=== PATIENT | male | born 1970 | race Hispanic/Latino ===

== ENCOUNTER → 2021-07-29 | Outpatient (CLI) | payer OTHER ==
[~2021-07-29] MED LIST: INSU100C6 SQ; INSU100I21 SQ; TYL3B PO
== END | disposition home or self-care (01) ==
LOC: OIH 10:10
PROVIDERS: ATTEND Family Medicine
DX: M47.815 Spondylosis without myelopathy or radiculopathy, thoracolumbar region (principal); R06.02 Shortness of breath
CPT/HCPCS: 71046

== ENCOUNTER → 2022-01-29 | Outpatient (CLI) | payer OTHER ==
[~2022-01-29] MED LIST changes: +LIDOCAINE HCL 4% LTA SOL 4 ML VIAL TP ONE
== END | disposition home or self-care (01) ==
LOC: WHH 10:18
PROVIDERS: ATTEND Family Medicine
DX: L89.899 Pressure ulcer of other site, unspecified stage (principal); E11.22 Type 2 diabetes mellitus with diabetic chronic kidney disease; I12.0 Hypertensive chronic kidney disease with stage 5 chronic kidney disease or end stage renal disease; N18.6 End stage renal disease; E78.5 Hyperlipidemia, unspecified; Z99.2 Dependence on renal dialysis; Z98.49 Cataract extraction status, unspecified eye; Z89.511 Acquired absence of right leg below knee; Z79.82 Long term (current) use of aspirin; Z79.899 Other long term (current) drug therapy
CPT/HCPCS: 11042; A4450; A6021; A6197

== ENCOUNTER → 2022-02-05 | Outpatient (CLI) | payer OTHER | END | disposition home or self-care (01) | LOC: WHH 09:47 | PROVIDERS: ATTEND Family Medicine | DX: L89.899 Pressure ulcer of other site, unspecified stage (principal); S81.001A Unspecified open wound, right knee, initial encounter; E11.22 Type 2 diabetes mellitus with diabetic chronic kidney disease; I12.0 Hypertensive chronic kidney disease with stage 5 chronic kidney disease or end stage renal disease; N18.6 End stage renal disease; E78.5 Hyperlipidemia, unspecified; Z99.2 Dependence on renal dialysis; Z98.49 Cataract extraction status, unspecified eye; Z89.511 Acquired absence of right leg below knee; Z79.82 Long term (current) use of aspirin; Z79.899 Other long term (current) drug therapy; X58.XXXA Exposure to other specified factors, initial encounter; Y93.89 Activity, other specified; Y92.89 Other specified places as the place of occurrence of the external cause; Y99.8 Other external cause status | CPT/HCPCS: 11042; A6021; A6196 ==

== ENCOUNTER → 2022-02-12 | Outpatient (CLI) | payer OTHER | END | disposition home or self-care (01) | LOC: WHH 09:57 | PROVIDERS: ATTEND Family Medicine | DX: E11.622 Type 2 diabetes mellitus with other skin ulcer (principal); L97.812 Non-pressure chronic ulcer of other part of right lower leg with fat layer exposed; S81.001D Unspecified open wound, right knee, subsequent encounter; E11.22 Type 2 diabetes mellitus with diabetic chronic kidney disease; I12.0 Hypertensive chronic kidney disease with stage 5 chronic kidney disease or end stage renal disease; N18.6 End stage renal disease; E78.5 Hyperlipidemia, unspecified; Z99.2 Dependence on renal dialysis; Z98.49 Cataract extraction status, unspecified eye; Z89.511 Acquired absence of right leg below knee; Z79.82 Long term (current) use of aspirin; Z79.899 Other long term (current) drug therapy; X58.XXXD Exposure to other specified factors, subsequent encounter | CPT/HCPCS: 11042; A6021; A6197 ==

== ENCOUNTER → 2022-02-26 | Outpatient (CLI) | payer OTHER ==
[~2022-02-26] MED LIST changes: -LIDOCAINE HCL 4% LTA SOL 4 ML VIAL TP ONE
== END | disposition home or self-care (01) ==
LOC: WHH 10:05
PROVIDERS: ATTEND Family Medicine
DX: E11.622 Type 2 diabetes mellitus with other skin ulcer (principal); L97.812 Non-pressure chronic ulcer of other part of right lower leg with fat layer exposed; S81.001D Unspecified open wound, right knee, subsequent encounter; E11.22 Type 2 diabetes mellitus with diabetic chronic kidney disease; I12.0 Hypertensive chronic kidney disease with stage 5 chronic kidney disease or end stage renal disease; N18.6 End stage renal disease; L84 Corns and callosities; E78.5 Hyperlipidemia, unspecified; Z99.2 Dependence on renal dialysis; Z98.49 Cataract extraction status, unspecified eye; Z89.511 Acquired absence of right leg below knee; Z79.82 Long term (current) use of aspirin; Z79.899 Other long term (current) drug therapy; X58.XXXD Exposure to other specified factors, subsequent encounter
CPT/HCPCS: 11042; A6021; A6197

== ENCOUNTER → 2022-03-05 | Outpatient (CLI) | payer OTHER, MEDICARE ==
[~2022-03-05] MED LIST changes: +LIDOCAINE HCL 4% LTA SOL 4 ML VIAL TP ONE
== END | disposition home or self-care (01) ==
LOC: WHH 08:50
PROVIDERS: ATTEND Family Medicine
DX: E11.622 Type 2 diabetes mellitus with other skin ulcer (principal); L97.812 Non-pressure chronic ulcer of other part of right lower leg with fat layer exposed; S81.001D Unspecified open wound, right knee, subsequent encounter; E11.22 Type 2 diabetes mellitus with diabetic chronic kidney disease; I12.0 Hypertensive chronic kidney disease with stage 5 chronic kidney disease or end stage renal disease; N18.6 End stage renal disease; L84 Corns and callosities; E78.5 Hyperlipidemia, unspecified; Z99.2 Dependence on renal dialysis; Z98.49 Cataract extraction status, unspecified eye; Z89.511 Acquired absence of right leg below knee; Z79.82 Long term (current) use of aspirin; Z79.899 Other long term (current) drug therapy; X58.XXXD Exposure to other specified factors, subsequent encounter
CPT/HCPCS: 11042; A6021; A6197

== ENCOUNTER → 2022-03-19 | Outpatient (CLI) | payer OTHER, MEDICARE | END | disposition home or self-care (01) | LOC: WHH 09:09 | PROVIDERS: ATTEND Family Medicine | DX: E11.622 Type 2 diabetes mellitus with other skin ulcer (principal); L97.812 Non-pressure chronic ulcer of other part of right lower leg with fat layer exposed; L97.311 Non-pressure chronic ulcer of right ankle limited to breakdown of skin; L84 Corns and callosities; S81.001D Unspecified open wound, right knee, subsequent encounter; E11.22 Type 2 diabetes mellitus with diabetic chronic kidney disease; I12.0 Hypertensive chronic kidney disease with stage 5 chronic kidney disease or end stage renal disease; N18.6 End stage renal disease; E78.5 Hyperlipidemia, unspecified; Z99.2 Dependence on renal dialysis; Z98.49 Cataract extraction status, unspecified eye; Z89.511 Acquired absence of right leg below knee; Z79.82 Long term (current) use of aspirin; Z79.899 Other long term (current) drug therapy; X58.XXXD Exposure to other specified factors, subsequent encounter | CPT/HCPCS: 11042; A6021; A6197 ==

== ENCOUNTER → 2022-04-02 | Outpatient (CLI) | payer OTHER, MEDICARE | END | disposition home or self-care (01) | LOC: WHH 08:53 | PROVIDERS: ATTEND Family Medicine | DX: E11.622 Type 2 diabetes mellitus with other skin ulcer (principal); L97.812 Non-pressure chronic ulcer of other part of right lower leg with fat layer exposed; L97.311 Non-pressure chronic ulcer of right ankle limited to breakdown of skin; L84 Corns and callosities; S81.001D Unspecified open wound, right knee, subsequent encounter; E11.22 Type 2 diabetes mellitus with diabetic chronic kidney disease; I12.0 Hypertensive chronic kidney disease with stage 5 chronic kidney disease or end stage renal disease; N18.6 End stage renal disease; E78.5 Hyperlipidemia, unspecified; Z99.2 Dependence on renal dialysis; Z98.49 Cataract extraction status, unspecified eye; Z89.511 Acquired absence of right leg below knee; Z79.82 Long term (current) use of aspirin; Z79.899 Other long term (current) drug therapy; X58.XXXD Exposure to other specified factors, subsequent encounter | CPT/HCPCS: 11042; A6021; A6197 ==

== ENCOUNTER → 2022-04-09 | Outpatient (CLI) | payer OTHER, MEDICARE | END | disposition home or self-care (01) | LOC: WHH 09:10 | PROVIDERS: ATTEND Family Medicine | DX: E11.622 Type 2 diabetes mellitus with other skin ulcer (principal); L97.812 Non-pressure chronic ulcer of other part of right lower leg with fat layer exposed; L97.311 Non-pressure chronic ulcer of right ankle limited to breakdown of skin; L84 Corns and callosities; S81.001D Unspecified open wound, right knee, subsequent encounter; E11.22 Type 2 diabetes mellitus with diabetic chronic kidney disease; I12.0 Hypertensive chronic kidney disease with stage 5 chronic kidney disease or end stage renal disease; N18.6 End stage renal disease; E78.5 Hyperlipidemia, unspecified; Z99.2 Dependence on renal dialysis; Z98.49 Cataract extraction status, unspecified eye; Z89.511 Acquired absence of right leg below knee; Z79.82 Long term (current) use of aspirin; Z79.899 Other long term (current) drug therapy; X58.XXXD Exposure to other specified factors, subsequent encounter | CPT/HCPCS: 11042; A6021; A6197 ==

== ENCOUNTER → 2022-04-16 | Outpatient (CLI) | payer OTHER, MEDICARE | END | disposition home or self-care (01) | LOC: WHH 08:38 | PROVIDERS: ATTEND Family Medicine | DX: T81.89XA Other complications of procedures, not elsewhere classified, initial encounter (principal); E11.622 Type 2 diabetes mellitus with other skin ulcer; L97.812 Non-pressure chronic ulcer of other part of right lower leg with fat layer exposed; L97.311 Non-pressure chronic ulcer of right ankle limited to breakdown of skin; L84 Corns and callosities; S81.001D Unspecified open wound, right knee, subsequent encounter; E11.22 Type 2 diabetes mellitus with diabetic chronic kidney disease; I12.0 Hypertensive chronic kidney disease with stage 5 chronic kidney disease or end stage renal disease; N18.6 End stage renal disease; E78.5 Hyperlipidemia, unspecified; Z99.2 Dependence on renal dialysis; Z98.49 Cataract extraction status, unspecified eye; Z89.511 Acquired absence of right leg below knee; Z79.82 Long term (current) use of aspirin; Z79.899 Other long term (current) drug therapy; X58.XXXD Exposure to other specified factors, subsequent encounter | CPT/HCPCS: 87070; 87077; 87186; 10180; A6021; A6197; A4450; 10060; 10061 ==

== ENCOUNTER → 2022-04-23 | Outpatient (CLI) | payer OTHER, MEDICARE | END | disposition home or self-care (01) | LOC: WHH 08:30 | PROVIDERS: ATTEND Family Medicine | DX: T81.89XD Other complications of procedures, not elsewhere classified, subsequent encounter (principal); E11.622 Type 2 diabetes mellitus with other skin ulcer; L97.811 Non-pressure chronic ulcer of other part of right lower leg limited to breakdown of skin; S81.001D Unspecified open wound, right knee, subsequent encounter; E11.22 Type 2 diabetes mellitus with diabetic chronic kidney disease; I12.0 Hypertensive chronic kidney disease with stage 5 chronic kidney disease or end stage renal disease; N18.6 End stage renal disease; E78.5 Hyperlipidemia, unspecified; M71.061 Abscess of bursa, right knee; Z89.511 Acquired absence of right leg below knee; Z99.2 Dependence on renal dialysis; Z98.49 Cataract extraction status, unspecified eye; Z79.82 Long term (current) use of aspirin; Z79.899 Other long term (current) drug therapy; X58.XXXD Exposure to other specified factors, subsequent encounter; Y83.8 Other surgical procedures as the cause of abnormal reaction of the patient, or of later complication, without mention of misadventure at the time of the procedure | CPT/HCPCS: G0463; A6021; A6197 ==

== ENCOUNTER → 2022-04-30 | Outpatient (CLI) | payer OTHER, MEDICARE | END | disposition home or self-care (01) | LOC: WHH 08:34 | PROVIDERS: ATTEND Family Medicine | DX: T81.89XD Other complications of procedures, not elsewhere classified, subsequent encounter (principal); E11.622 Type 2 diabetes mellitus with other skin ulcer; L97.812 Non-pressure chronic ulcer of other part of right lower leg with fat layer exposed; S81.001D Unspecified open wound, right knee, subsequent encounter; E11.22 Type 2 diabetes mellitus with diabetic chronic kidney disease; I12.0 Hypertensive chronic kidney disease with stage 5 chronic kidney disease or end stage renal disease; N18.6 End stage renal disease; E78.5 Hyperlipidemia, unspecified; M71.061 Abscess of bursa, right knee; Z89.511 Acquired absence of right leg below knee; Z99.2 Dependence on renal dialysis; Z98.49 Cataract extraction status, unspecified eye; Z79.82 Long term (current) use of aspirin; Z79.899 Other long term (current) drug therapy; X58.XXXD Exposure to other specified factors, subsequent encounter; Y83.8 Other surgical procedures as the cause of abnormal reaction of the patient, or of later complication, without mention of misadventure at the time of the procedure | CPT/HCPCS: 10140; 11042; A6021; A6197 ==

== ENCOUNTER → 2022-05-07 | Outpatient (CLI) | payer OTHER, MEDICARE ==
[~2022-05-07] MED LIST changes: -LIDOCAINE HCL 4% LTA SOL 4 ML VIAL TP ONE
== END | disposition home or self-care (01) ==
LOC: WHH 08:14
PROVIDERS: ATTEND Family Medicine
DX: T81.89XD Other complications of procedures, not elsewhere classified, subsequent encounter (principal); E11.622 Type 2 diabetes mellitus with other skin ulcer; L97.812 Non-pressure chronic ulcer of other part of right lower leg with fat layer exposed; S81.001D Unspecified open wound, right knee, subsequent encounter; E11.22 Type 2 diabetes mellitus with diabetic chronic kidney disease; I12.0 Hypertensive chronic kidney disease with stage 5 chronic kidney disease or end stage renal disease; N18.6 End stage renal disease; E78.5 Hyperlipidemia, unspecified; M71.061 Abscess of bursa, right knee; Z89.511 Acquired absence of right leg below knee; Z99.2 Dependence on renal dialysis; Z98.49 Cataract extraction status, unspecified eye; Z79.82 Long term (current) use of aspirin; Z79.899 Other long term (current) drug therapy; X58.XXXD Exposure to other specified factors, subsequent encounter; Y83.8 Other surgical procedures as the cause of abnormal reaction of the patient, or of later complication, without mention of misadventure at the time of the procedure
CPT/HCPCS: 11042; A6021; A6197

== ENCOUNTER → 2022-05-14 | Outpatient (CLI) | payer OTHER, MEDICARE ==
[~2022-05-14] MED LIST changes: +LIDOCAINE HCL 4% LTA SOL 4 ML VIAL TP ONE
== END | disposition home or self-care (01) ==
LOC: WHH 08:18
PROVIDERS: ATTEND Family Medicine
DX: T81.89XD Other complications of procedures, not elsewhere classified, subsequent encounter (principal); E11.622 Type 2 diabetes mellitus with other skin ulcer; L97.812 Non-pressure chronic ulcer of other part of right lower leg with fat layer exposed; S81.001D Unspecified open wound, right knee, subsequent encounter; E11.22 Type 2 diabetes mellitus with diabetic chronic kidney disease; I12.0 Hypertensive chronic kidney disease with stage 5 chronic kidney disease or end stage renal disease; N18.6 End stage renal disease; E78.5 Hyperlipidemia, unspecified; M71.061 Abscess of bursa, right knee; Z89.511 Acquired absence of right leg below knee; Z99.2 Dependence on renal dialysis; Z98.49 Cataract extraction status, unspecified eye; Z79.82 Long term (current) use of aspirin; Z79.899 Other long term (current) drug therapy; X58.XXXD Exposure to other specified factors, subsequent encounter; Y83.8 Other surgical procedures as the cause of abnormal reaction of the patient, or of later complication, without mention of misadventure at the time of the procedure
CPT/HCPCS: 11042; A6021; A6197

== ENCOUNTER → 2022-05-21 | Outpatient (CLI) | payer OTHER, MEDICARE | END | disposition home or self-care (01) | LOC: WHH 08:32 | PROVIDERS: ATTEND Family Medicine | DX: T81.89XD Other complications of procedures, not elsewhere classified, subsequent encounter (principal); E11.622 Type 2 diabetes mellitus with other skin ulcer; L97.812 Non-pressure chronic ulcer of other part of right lower leg with fat layer exposed; S81.001D Unspecified open wound, right knee, subsequent encounter; E11.22 Type 2 diabetes mellitus with diabetic chronic kidney disease; I12.0 Hypertensive chronic kidney disease with stage 5 chronic kidney disease or end stage renal disease; N18.6 End stage renal disease; E78.5 Hyperlipidemia, unspecified; M71.061 Abscess of bursa, right knee; Z89.511 Acquired absence of right leg below knee; Z99.2 Dependence on renal dialysis; Z98.49 Cataract extraction status, unspecified eye; Z79.82 Long term (current) use of aspirin; Z79.899 Other long term (current) drug therapy; X58.XXXD Exposure to other specified factors, subsequent encounter; Y83.8 Other surgical procedures as the cause of abnormal reaction of the patient, or of later complication, without mention of misadventure at the time of the procedure | CPT/HCPCS: G0463; A4450 ==

== ENCOUNTER → 2022-05-28 | Outpatient (CLI) | payer OTHER, MEDICARE ==
[~2022-05-28] MED LIST changes: -LIDOCAINE HCL 4% LTA SOL 4 ML VIAL TP ONE
== END | disposition home or self-care (01) ==
LOC: WHH 08:43
PROVIDERS: ATTEND Family Medicine
DX: E11.622 Type 2 diabetes mellitus with other skin ulcer (principal); L97.811 Non-pressure chronic ulcer of other part of right lower leg limited to breakdown of skin; S81.001D Unspecified open wound, right knee, subsequent encounter; E11.22 Type 2 diabetes mellitus with diabetic chronic kidney disease; I12.0 Hypertensive chronic kidney disease with stage 5 chronic kidney disease or end stage renal disease; N18.6 End stage renal disease; E78.5 Hyperlipidemia, unspecified; Z89.511 Acquired absence of right leg below knee; Z99.2 Dependence on renal dialysis; Z98.49 Cataract extraction status, unspecified eye; Z79.82 Long term (current) use of aspirin; Z79.899 Other long term (current) drug therapy; X58.XXXD Exposure to other specified factors, subsequent encounter
CPT/HCPCS: G0463

== ENCOUNTER 2022-08-18 15:39 | Inpatient (IN) | payer OTHER, MEDICARE ==
[~2022-08-18] VITALS: Ht 180.3 cm; Wt 69.1 kg
[2022-08-18 16:20] LABS: BASOPHILS % (AUTO) 0.4 % (0.0-5.0); EOSINOPHILS % (AUTO) 0.6 % (0.0-8.0); HEMATOCRIT 29.5 % (42-54); LYMPHOCYTES % (AUTO) 7.4 % (21.0-51.0); MEAN CORPUSCULAR HEMOGLOBIN 28.6 pg (27.0-33.0); MEAN CORPUSCULAR HGB CONC 33.2 g/dL (32.0-36.0); MONOCYTES % (AUTO) 9.2 % (3.0-13.0); NEUTROPHILS % (AUTO) 81.5 % (40.0-77.0); PLATELET COUNT (AUTO) 232 K/uL (130-400); RED BLOOD CELL COUNT(AUTO) 3.43 MIL/uL (4.50-6.20); RED CELL DISTRIBUTION WIDTH 13.8 % (11.0-15.5)
[2022-08-18 16:33] LABS: ALBUMIN 2.8 g/dL (3.5-5.0); CREATININE 8.8 mg/dL (0.5-1.5); POTASSIUM 3.4 mmol/L (3.5-5.1); TOTAL PROTEIN, SERUM 8.5 g/dL (6.0-8.3)
[2022-08-18] MEDS ORDERED: 0.9% NACL 500ML IV.SOLN 500 ML IV ONE (19:00)
[2022-08-19] VITALS (20 sets, daily range): BP systolic 99–137; BP diastolic 57–83
[2022-08-19] MEDS ORDERED: 0.9%NACL 1000ML 500 ML IV ONE (02:30)
[2022-08-19] MEDS ORDERED: MIDODRINE HCL 5 MG TABLET PO SCH ×2 (03:00→09:00)
[2022-08-19] MEDS ORDERED: ONDANSETRON 4MG INJ IV PRN (03:00)
[2022-08-19] MEDS ORDERED: ACETAMINOPHEN 325 MG TAB PO PRN (03:00)
[2022-08-19] MEDS ORDERED: LACTULOSE 20 GM/30 ML UDCUP PO PRN (03:00)
[2022-08-19] MEDS ORDERED: KCL 20 MEQ ERTAB PO ONE (03:30)
[2022-08-19] MEDS ORDERED: CEFTRIAXONE 1G VIAL IVP SCH (03:30)
[2022-08-19] MEDS: HEPARIN 5,000 UNIT VIAL SQ SCH ×2 (03:30→18:31)
[2022-08-19] MEDS ORDERED: ATOR40TA71 PO (05:19)
[2022-08-19] MEDS ORDERED: SUCR500T PO (05:19)
[2022-08-19] MEDS ORDERED: CHOL500051 PO (05:19)
[2022-08-19] MEDS ORDERED: FOLI0.8T22 PO (05:19)
[2022-08-19 06:38] LABS: INR 1.4 (0.85-1.15)
[2022-08-19 06:39] LABS: PARTIAL THROMBOPLASTIN TIME 32.6 SEC (26.3-35.5)
[2022-08-19] MEDS: INSULIN HUMULIN R 100 UNIT/ML 3ML SQ SCH ×4 (06:48→21:00)
[2022-08-19 07:02] LABS: THYROID STIMULATING HORMONE 2.34 uIU/mL (0.36-3.74)
[2022-08-19] MEDS: FAMOTIDINE 20MG TAB PO SCH ×2 (08:41→20:57)
[2022-08-19] MEDS ORDERED: EPOETIN ALFA-EPBX (NON-ESRD) 10,000 UNIT/ML VIAL SQ SCH (09:30)
[2022-08-19] MEDS ORDERED: VANCOMYCIN PROTOCOL PER PHARMACY IV SCH (09:30)
[2022-08-19 09:50] LABS: BASOPHILS % (AUTO) 0.5 % (0.0-5.0); EOSINOPHILS % (AUTO) 0.4 % (0.0-8.0); LYMPHOCYTES % (AUTO) 11.5 % (21.0-51.0); MEAN CORPUSCULAR HEMOGLOBIN 28.7 pg (27.0-33.0); MEAN CORPUSCULAR HGB CONC 32.5 g/dL (32.0-36.0); MEAN CORPUSCULAR VOLUME 88.3 fL (79-99); MONOCYTES % (AUTO) 8.6 % (3.0-13.0); NEUTROPHILS % (AUTO) 77.9 % (40.0-77.0); PLATELET COUNT (AUTO) 244 K/uL (130-400); RED BLOOD CELL COUNT(AUTO) 3.17 MIL/uL (4.50-6.20)
[2022-08-19 10:00] LABS: INR 1.4 (0.85-1.15)
[2022-08-19] MEDS ORDERED: VANCOMYCIN 1.25 GM/250 ML BAG 250 ML IV SCH (10:00)
[2022-08-19 10:02] LABS: PARTIAL THROMBOPLASTIN TIME 32.2 SEC (26.3-35.5)
[2022-08-19 10:12] LABS: ALBUMIN 2.6 g/dL (3.5-5.0); MAGNESIUM 2.3 mg/dL (1.80-2.40); POTASSIUM 3.5 mmol/L (3.5-5.1); THYROID STIMULATING HORMONE 2.86 uIU/mL (0.36-3.74); TOTAL PROTEIN, SERUM 8.1 g/dL (6.0-8.3)
[2022-08-19 10:25] LABS: CREATININE 10.4 mg/dL (0.5-1.5)
[2022-08-19 10:28] LABS: CRP QUANTITATIVE 300.3 mg/L (0.00-9.0)
[2022-08-19] MEDS: Vitamin B Complex/Vit C/Folic Acid PO SCH (10:57)
[2022-08-19] MEDS: CEFTRIAXONE 1G VIAL IVPB SCH (10:57)
[2022-08-19] MEDS ORDERED: LOPERAMIDE 1 MG/7.5 ML UDCUP PO PRN (11:30)
[2022-08-19] MEDS: ASPIRIN 81 MG EC TAB PO SCH (11:57)
[2022-08-19] MEDS: VELPHORO 500 MG PO SCH ×2 (11:58→16:30)
[2022-08-19] MEDS: MIDODRINE HCL 5 MG TABLET PO SCH ×2 (15:17→20:57)
[2022-08-19] MEDS: VANCOMYCIN 1.25 GM/250 ML BAG 250 ML IV SCH (18:29)
[2022-08-19] MEDS: ATORVASTATIN 40 MG TABLET PO SCH (20:57)
[2022-08-20] VITALS (7 sets, daily range): BP systolic 112–148; BP diastolic 60–81
[2022-08-20] MEDS: ACETAMINOPHEN 325 MG TAB PO PRN (03:55)
[2022-08-20] MEDS ORDERED: CALCIUM CARB 500MG CHEW TAB PO SCH (04:00)
[2022-08-20] MEDS: HEPARIN 5,000 UNIT VIAL SQ SCH ×2 (04:19→15:00)
[2022-08-20 04:56] LABS: HEPATITIS A IGM ANTIBODY Non-Reactive (Nonreactive)
[2022-08-20 04:57] LABS: HEPATITIS B CORE IGM ANTIBODY Non-Reactive (Negative); HEPATITIS B SURFACE ANTIGEN Non-Reactive (Nonreactive); HEPATITIS C ANTIBODY Non-Reactive (Nonreactive)
[2022-08-20] MEDS: INSULIN HUMULIN R 100 UNIT/ML 3ML SQ SCH ×4 (05:34→20:41)
[2022-08-20 05:38] LABS: BASOPHILS % (AUTO) 0.6 % (0.0-5.0); EOSINOPHILS % (AUTO) 0.5 % (0.0-8.0); HEMATOCRIT 30.4 % (42-54); MEAN CORPUSCULAR HEMOGLOBIN 28.9 pg (27.0-33.0); MEAN CORPUSCULAR HGB CONC 32.9 g/dL (32.0-36.0); MEAN CORPUSCULAR VOLUME 87.9 fL (79-99); MONOCYTES % (AUTO) 7.7 % (3.0-13.0); PLATELET COUNT (AUTO) 338 K/uL (130-400); RED BLOOD CELL COUNT(AUTO) 3.46 MIL/uL (4.50-6.20); RED CELL DISTRIBUTION WIDTH 14.1 % (11.0-15.5); WHITE BLOOD COUNT (AUTO) 17.2 K/uL (4.8-10.8)
[2022-08-20 05:58] LABS: ALBUMIN 2.5 g/dL (3.5-5.0); CREATININE 7.8 mg/dL (0.5-1.5); MAGNESIUM 1.9 mg/dL (1.80-2.40); POTASSIUM 3.7 mmol/L (3.5-5.1); TOTAL PROTEIN, SERUM 7.9 g/dL (6.0-8.3)
[2022-08-20 06:38] LABS: CRP QUANTITATIVE 311.9 mg/L (0.00-9.0)
[2022-08-20] MEDS: CEFTRIAXONE 1G VIAL IVPB SCH (09:19)
[2022-08-20] MEDS: Vitamin B Complex/Vit C/Folic Acid PO SCH (09:20)
[2022-08-20] MEDS: MIDODRINE HCL 5 MG TABLET PO SCH ×3 (09:20→20:49)
[2022-08-20] MEDS: FAMOTIDINE 20MG TAB PO SCH ×2 (09:20→20:49)
[2022-08-20] MEDS: **HM** VIT D3 125MCG PO SCH (09:26)
[2022-08-20] MEDS: VELPHORO 500 MG PO SCH ×3 (09:26→17:00)
[2022-08-20] MEDS: ASPIRIN 81 MG EC TAB PO SCH (12:19)
[2022-08-20] MEDS: VANCOMYCIN 1.25 GM/250 ML BAG 250 ML IV SCH (15:01)
[2022-08-20 15:46] LABS: % IRON SATURATION 14.4 % (30-44)
[2022-08-20] MEDS: ZOSYN 3.375GM +NS 50ML IV SCH (20:49)
[2022-08-20] MEDS: ATORVASTATIN 40 MG TABLET PO SCH (20:49)
[2022-08-21] VITALS (21 sets, daily range): BP systolic 110–148; BP diastolic 52–79
[2022-08-21] MEDS: HEPARIN 5,000 UNIT VIAL SQ SCH ×2 (04:20→15:00)
[2022-08-21] MEDS: INSULIN HUMULIN R 100 UNIT/ML 3ML SQ SCH ×4 (05:58→21:00)
[2022-08-21 06:55] LABS: BASOPHILS % (AUTO) 0.5 % (0.0-5.0); EOSINOPHILS % (AUTO) 1.7 % (0.0-8.0); HEMATOCRIT 31.7 % (42-54); LYMPHOCYTES % (AUTO) 8.8 % (21.0-51.0); MEAN CORPUSCULAR HEMOGLOBIN 28.2 pg (27.0-33.0); MEAN CORPUSCULAR HGB CONC 31.9 g/dL (32.0-36.0); MEAN CORPUSCULAR VOLUME 88.5 fL (79-99); MONOCYTES % (AUTO) 7.8 % (3.0-13.0); NEUTROPHILS % (AUTO) 79.2 % (40.0-77.0); PLATELET COUNT (AUTO) 398 K/uL (130-400); RED BLOOD CELL COUNT(AUTO) 3.58 MIL/uL (4.50-6.20); RED CELL DISTRIBUTION WIDTH 14.2 % (11.0-15.5); WHITE BLOOD COUNT (AUTO) 20.5 K/uL (4.8-10.8)
[2022-08-21 07:10] LABS: ALBUMIN 2.4 g/dL (3.5-5.0); BILIRUBIN,DIRECT 0.2 mg/dL (0.0-0.3); MAGNESIUM 2.2 mg/dL (1.80-2.40); POTASSIUM 3.7 mmol/L (3.5-5.1); TOTAL PROTEIN, SERUM 7.9 g/dL (6.0-8.3)
[2022-08-21 07:19] LABS: CREATININE 10.3 mg/dL (0.5-1.5)
[2022-08-21] MEDS: MIDODRINE HCL 5 MG TABLET PO SCH ×3 (08:43→19:54)
[2022-08-21] MEDS: Vitamin B Complex/Vit C/Folic Acid PO SCH (08:43)
[2022-08-21] MEDS: ZOSYN 3.375GM +NS 50ML IV SCH ×2 (08:43→22:00)
[2022-08-21] MEDS: FAMOTIDINE 20MG TAB PO SCH ×2 (08:43→19:54)
[2022-08-21] MEDS: **HM** VIT D3 125MCG PO SCH (09:00)
[2022-08-21] MEDS: ASPIRIN 81 MG EC TAB PO SCH (14:32)
[2022-08-21] MEDS: VANCOMYCIN 1.25 GM/250 ML BAG 250 ML IV SCH (15:00)
[2022-08-21] MEDS: ATORVASTATIN 40 MG TABLET PO SCH (19:54)
[2022-08-22] VITALS (25 sets, daily range): BP systolic 105–134; BP diastolic 64–80
[2022-08-22] MEDS: HEPARIN 5,000 UNIT VIAL SQ SCH ×2 (04:32→15:30)
[2022-08-22 04:39] LABS: BASOPHILS % (AUTO) 0.5 % (0.0-5.0); EOSINOPHILS % (AUTO) 1.6 % (0.0-8.0); LYMPHOCYTES % (AUTO) 8.5 % (21.0-51.0); MEAN CORPUSCULAR HEMOGLOBIN 28.6 pg (27.0-33.0); MEAN CORPUSCULAR HGB CONC 31.8 g/dL (32.0-36.0); MEAN CORPUSCULAR VOLUME 90.2 fL (79-99); MONOCYTES % (AUTO) 8.7 % (3.0-13.0); NEUTROPHILS % (AUTO) 78.5 % (40.0-77.0); PLATELET COUNT (AUTO) 428 K/uL (130-400); RED BLOOD CELL COUNT(AUTO) 3.77 MIL/uL (4.50-6.20); RED CELL DISTRIBUTION WIDTH 14.1 % (11.0-15.5); WHITE BLOOD COUNT (AUTO) 17.6 K/uL (4.8-10.8)
[2022-08-22] MEDS ORDERED: LIDOCAINE HCL 1% 20 ML VIAL ONE (04:42)
[2022-08-22] MEDS ORDERED: BUPIVACAINE/PF 0.5% 10ML VIAL ONE (04:42)
[2022-08-22 04:55] LABS: ALBUMIN 2.4 g/dL (3.5-5.0); CREATININE 7.8 mg/dL (0.5-1.5); POTASSIUM 3.4 mmol/L (3.5-5.1); TOTAL PROTEIN, SERUM 8.4 g/dL (6.0-8.3)
[2022-08-22 05:05] LABS: CRP QUANTITATIVE 236.6 mg/L (0.00-9.0)
[2022-08-22] MEDS ORDERED: PROPOFOL 1000 MG/100 ML 100 ML IV ONE (05:45)
[2022-08-22] MEDS ORDERED: KETAMINE HCL 100 MG/ML 5ML VIAL IJ ONE (05:46)
[2022-08-22 05:55] LABS: ERYTHROCYTE SEDIMENTATION RATE 116 MM/HR (0-15)
[2022-08-22] MEDS: INSULIN HUMULIN R 100 UNIT/ML 3ML SQ SCH ×4 (06:33→21:00)
[2022-08-22] MEDS ORDERED: MIDAZOLAM HCL 1 MG/ML 2ML VIAL ONE (07:43)
[2022-08-22] MEDS: **HM** VIT D3 125MCG PO SCH (09:00)
[2022-08-22] MEDS: CLOPIDOGREL 75MG TAB PO SCH ×3 (09:00→11:32)
[2022-08-22] MEDS: MIDODRINE HCL 5 MG TABLET PO SCH ×3 (09:53→21:11)
[2022-08-22] MEDS: FAMOTIDINE 20MG TAB PO SCH ×2 (09:53→21:11)
[2022-08-22] MEDS: Vitamin B Complex/Vit C/Folic Acid PO SCH (09:53)
[2022-08-22] MEDS: ZOSYN 3.375GM +NS 50ML IV SCH ×2 (09:53→21:11)
[2022-08-22] MEDS: ASPIRIN 81 MG EC TAB PO SCH (11:31)
[2022-08-22] MEDS ORDERED: GABA-529 PO (12:12)
[2022-08-22] MEDS: ATORVASTATIN 40 MG TABLET PO SCH (21:10)
[2022-08-23] VITALS (21 sets, daily range): BP systolic 97–147; BP diastolic 50–77
[2022-08-23] MEDS: HEPARIN 5,000 UNIT VIAL SQ SCH ×3 (04:02→18:26)
[2022-08-23 04:32] LABS: MEAN CORPUSCULAR HEMOGLOBIN 28.4 pg (27.0-33.0); MEAN CORPUSCULAR HGB CONC 31.9 g/dL (32.0-36.0); MEAN CORPUSCULAR VOLUME 89.1 fL (79-99); PLATELET COUNT (AUTO) 370 K/uL (130-400); RED BLOOD CELL COUNT(AUTO) 3.48 MIL/uL (4.50-6.20); RED CELL DISTRIBUTION WIDTH 14.1 % (11.0-15.5); WHITE BLOOD COUNT (AUTO) 17.9 K/uL (4.8-10.8)
[2022-08-23 04:56] LABS: ALBUMIN 2.3 g/dL (3.5-5.0); CRP QUANTITATIVE 234.2 mg/L (0.00-9.0); MAGNESIUM 2.1 mg/dL (1.80-2.40); PHOSPHORUS 6.6 mg/dL (2.5-4.9); POTASSIUM 3.4 mmol/L (3.5-5.1); TOTAL PROTEIN, SERUM 8.3 g/dL (6.0-8.3)
[2022-08-23 05:11] LABS: BAND NEUTROPHILS % (MANUAL) 2 % (0-2); EOSINOPHILS % (MANUAL) 1 % (1-6); LYMPHOCYTES % (MANUAL) 8 % (22-44); MAN.DIFF COMMENT-IMPRESSION MANUAL DIFFERENTIAL; MONOCYTES % (MANUAL) 8 % (2-9); PLATELET MORPHOLOGY COMMENT ADEQUATE; SEGMENTED NEUTROPHILS % 81 % (40-70)
[2022-08-23] MEDS: INSULIN HUMULIN R 100 UNIT/ML 3ML SQ SCH ×4 (07:30→21:00)
[2022-08-23] MEDS: CLOPIDOGREL 75MG TAB PO SCH (09:00)
[2022-08-23] MEDS: Vitamin B Complex/Vit C/Folic Acid PO SCH (09:00)
[2022-08-23] MEDS: **HM** VIT D3 125MCG PO SCH (09:00)
[2022-08-23] MEDS: FAMOTIDINE 20MG TAB PO SCH ×2 (09:00→21:02)
[2022-08-23] MEDS: ZOSYN 3.375GM +NS 50ML IV SCH ×2 (09:57→21:03)
[2022-08-23] MEDS: MIDODRINE HCL 5 MG TABLET PO SCH ×3 (09:57→21:02)
[2022-08-23] MEDS: ASPIRIN 81 MG EC TAB PO SCH (09:58)
[2022-08-23] MEDS ORDERED: PROPOFOL 10 MG/ML 20ML VIAL IV ONE (11:19)
[2022-08-23] MEDS ORDERED: LACTULOSE 20 GM/30 ML UDCUP PR SCH ×2 (13:30→15:30)
[2022-08-23] MEDS ORDERED: PEG 3350/NA SULF,BICARB,CL/KCL 4000 ML SOLN PO SCH (15:00)
[2022-08-23] MEDS: ATORVASTATIN 40 MG TABLET PO SCH (21:03)
[2022-08-24] VITALS (35 sets, daily range): BP systolic 100–144; BP diastolic 53–82
[2022-08-24 04:34] LABS: BASOPHILS % (AUTO) 0.4 % (0.0-5.0); EOSINOPHILS % (AUTO) 1.3 % (0.0-8.0); HEMATOCRIT 32.4 % (42-54); LYMPHOCYTES % (AUTO) 12.2 % (21.0-51.0); MEAN CORPUSCULAR HEMOGLOBIN 28.4 pg (27.0-33.0); MEAN CORPUSCULAR HGB CONC 31.8 g/dL (32.0-36.0); MEAN CORPUSCULAR VOLUME 89.3 fL (79-99); MONOCYTES % (AUTO) 8.5 % (3.0-13.0); NEUTROPHILS % (AUTO) 76.3 % (40.0-77.0); PLATELET COUNT (AUTO) 381 K/uL (130-400); RED BLOOD CELL COUNT(AUTO) 3.63 MIL/uL (4.50-6.20); RED CELL DISTRIBUTION WIDTH 14.2 % (11.0-15.5)
[2022-08-24 05:00] LABS: ALBUMIN 2.3 g/dL (3.5-5.0); POTASSIUM 3.7 mmol/L (3.5-5.1); TOTAL PROTEIN, SERUM 8.4 g/dL (6.0-8.3)
[2022-08-24 05:02] LABS: CREATININE 12.4 mg/dL (0.5-1.5)
[2022-08-24 05:07] LABS: CRP QUANTITATIVE 180.6 mg/L (0.00-9.0)
[2022-08-24] MEDS: INSULIN HUMULIN R 100 UNIT/ML 3ML SQ SCH ×3 (05:13→20:38)
[2022-08-24 05:52] LABS: ERYTHROCYTE SEDIMENTATION RATE 130 MM/HR (0-15)
[2022-08-24] MEDS: Vitamin B Complex/Vit C/Folic Acid PO SCH (08:00)
[2022-08-24] MEDS: **HM** VIT D3 125MCG PO SCH (08:00)
[2022-08-24] MEDS: FAMOTIDINE 20MG TAB PO SCH ×2 (08:01→20:39)
[2022-08-24] MEDS: CLOPIDOGREL 75MG TAB PO SCH (08:01)
[2022-08-24] MEDS: MIDODRINE HCL 5 MG TABLET PO SCH ×3 (08:01→20:39)
[2022-08-24] MEDS: ASPIRIN 81 MG EC TAB PO SCH (08:02)
[2022-08-24] MEDS: ZOSYN 3.375GM +NS 50ML IV SCH ×2 (09:33→20:38)
[2022-08-24] MEDS ORDERED: PROPOFOL 10 MG/ML 20ML VIAL IV ONE (10:45)
[2022-08-24] MEDS: ACETAMINOPHEN 325 MG TAB PO PRN (13:11)
[2022-08-24] MEDS: HEPARIN 5,000 UNIT VIAL SQ SCH (15:30)
[2022-08-24] MEDS: VANCOMYCIN 1G/250ML KIT 250 ML IV SCH (16:00)
[2022-08-24] MEDS ORDERED: 0.9%NACL 1000ML 1,000 ML IV ONE (19:13)
[2022-08-24] MEDS: ATORVASTATIN 40 MG TABLET PO SCH (20:39)
[2022-08-25] VITALS: BP 137/77
[2022-08-25 04:00] VITALS: BP 130/77
[2022-08-25 04:26] LABS: BASOPHILS % (AUTO) 0.6 % (0.0-5.0); EOSINOPHILS % (AUTO) 1.6 % (0.0-8.0); LYMPHOCYTES % (AUTO) 12.5 % (21.0-51.0); MEAN CORPUSCULAR HEMOGLOBIN 28.6 pg (27.0-33.0); MEAN CORPUSCULAR HGB CONC 31.8 g/dL (32.0-36.0); MEAN CORPUSCULAR VOLUME 90.2 fL (79-99); MONOCYTES % (AUTO) 9.1 % (3.0-13.0); NEUTROPHILS % (AUTO) 74.6 % (40.0-77.0); PLATELET COUNT (AUTO) 380 K/uL (130-400); RED BLOOD CELL COUNT(AUTO) 3.77 MIL/uL (4.50-6.20); WHITE BLOOD COUNT (AUTO) 14.7 K/uL (4.8-10.8)
[2022-08-25 04:48] LABS: ALBUMIN 2.6 g/dL (3.5-5.0); POTASSIUM 3.3 mmol/L (3.5-5.1); TOTAL PROTEIN, SERUM 9.3 g/dL (6.0-8.3)
[2022-08-25 04:53] LABS: CREATININE 9.1 mg/dL (0.5-1.5)
[2022-08-25 05:51] LABS: ERYTHROCYTE SEDIMENTATION RATE 130 MM/HR (0-15)
[2022-08-25] MEDS: INSULIN HUMULIN R 100 UNIT/ML 3ML SQ SCH ×4 (07:30→21:00)
[2022-08-25 08:00] VITALS: BP 117/57
[2022-08-25] MEDS: **HM** VIT D3 125MCG PO SCH (09:00)
[2022-08-25] MEDS: Vitamin B Complex/Vit C/Folic Acid PO SCH (09:34)
[2022-08-25] MEDS: CLOPIDOGREL 75MG TAB PO SCH (09:34)
[2022-08-25] MEDS: ZOSYN 3.375GM +NS 50ML IV SCH ×2 (09:35→21:43)
[2022-08-25] MEDS: MIDODRINE HCL 5 MG TABLET PO SCH ×3 (09:35→21:43)
[2022-08-25] MEDS: FAMOTIDINE 20MG TAB PO SCH ×2 (09:35→21:43)
[2022-08-25] MEDS: ASPIRIN 81 MG EC TAB PO SCH (11:36)
[2022-08-25 11:53] VITALS: BP 89/55
[2022-08-25 18:09] LABS: ALPHA-1-ANTITRYPSIN 157 mg/dL (101-187)
[2022-08-25 20:00] VITALS: BP 96/59
[2022-08-25] MEDS: ATORVASTATIN 40 MG TABLET PO SCH (21:43)
[2022-08-26] VITALS (26 sets, daily range): BP systolic 105–147; BP diastolic 60–83
[2022-08-26 04:17] LABS: HEMATOCRIT 35.8 % (42-54); MEAN CORPUSCULAR HEMOGLOBIN 28.5 pg (27.0-33.0); MEAN CORPUSCULAR HGB CONC 31.6 g/dL (32.0-36.0); MEAN CORPUSCULAR VOLUME 90.4 fL (79-99); RED BLOOD CELL COUNT(AUTO) 3.96 MIL/uL (4.50-6.20); RED CELL DISTRIBUTION WIDTH 13.8 % (11.0-15.5); WHITE BLOOD COUNT (AUTO) 14.4 K/uL (4.8-10.8)
[2022-08-26 04:27] LABS: INR 1.34 (0.85-1.15); PROTHROMBIN TIME 14.4 SEC (9.6-11.6)
[2022-08-26 04:40] LABS: POTASSIUM 3.9 mmol/L (3.5-5.1)
[2022-08-26 04:50] LABS: CREATININE 11.4 mg/dL (0.5-1.5)
[2022-08-26] MEDS: INSULIN HUMULIN R 100 UNIT/ML 3ML SQ SCH ×3 (06:42→21:00)
[2022-08-26] MEDS ORDERED: IODIXANOL 320 MG/ML 100 ML VIAL ONE (08:46)
[2022-08-26] MEDS ORDERED: HEPARIN 10,000 UNIT/10ML (1,000 UNIT/ML) VIAL ONE (08:46)
[2022-08-26] MEDS ORDERED: LIDOCAINE HCL 400MG/20ML VIAL ONE (08:47)
[2022-08-26] MEDS ORDERED: MIDAZOLAM HCL 1 MG/ML 2ML VIAL ONE ×2 (08:47→10:41)
[2022-08-26] MEDS ORDERED: FENTANYL CITRATE PF 50 MCG/1 ML 2ML VIAL ONE (08:48)
[2022-08-26] MEDS: FAMOTIDINE 20MG TAB PO SCH ×2 (09:00→19:35)
[2022-08-26] MEDS: Vitamin B Complex/Vit C/Folic Acid PO SCH (09:00)
[2022-08-26] MEDS: **HM** VIT D3 125MCG PO SCH (09:00)
[2022-08-26] MEDS: CLOPIDOGREL 75MG TAB PO SCH (09:00)
[2022-08-26] MEDS: MIDODRINE HCL 5 MG TABLET PO SCH ×3 (09:00→19:36)
[2022-08-26] MEDS: ZOSYN 3.375GM +NS 50ML IV SCH ×2 (09:00→19:35)
[2022-08-26] MEDS ORDERED: ASPIRIN 81MG CHEW TAB ONE (09:53)
[2022-08-26] MEDS ORDERED: CLOPIDOGREL 300MG TAB ONE (09:53)
[2022-08-26] MEDS: ASPIRIN 81 MG EC TAB PO SCH (11:30)
[2022-08-26] MEDS ORDERED: GLUCAGON 1MG KIT 1 MG ML IM PRN (11:30)
[2022-08-26] MEDS ORDERED: DEXTROSE 50%-WATER 50 ML DISP.SYRIN IV PRN (11:30)
[2022-08-26 13:42] LABS: THYROID STIMULATING HORMONE 4.78 uIU/mL (0.36-3.74)
[2022-08-26] MEDS ORDERED: 0.9% NACL 250ML 250 ML ONE (16:19)
[2022-08-26] MEDS: VANCOMYCIN 1G/250ML KIT 250 ML IV SCH (16:30)
[2022-08-26] MEDS: ATORVASTATIN 40 MG TABLET PO SCH (19:35)
[2022-08-27] VITALS (24 sets, daily range): BP systolic 87–152; BP diastolic 57–104
[2022-08-27] MEDS: INSULIN HUMULIN R 100 UNIT/ML 3ML SQ SCH ×4 (05:33→19:55)
[2022-08-27] MEDS: Vitamin B Complex/Vit C/Folic Acid PO SCH (09:00)
[2022-08-27] MEDS: **HM** VIT D3 125MCG PO SCH (09:00)
[2022-08-27] MEDS: CLOPIDOGREL 75MG TAB PO SCH (09:00)
[2022-08-27] MEDS: MIDODRINE HCL 5 MG TABLET PO SCH ×3 (09:00→19:22)
[2022-08-27] MEDS: FAMOTIDINE 20MG TAB PO SCH ×2 (09:00→19:22)
[2022-08-27] MEDS: ZOSYN 3.375GM +NS 50ML IV SCH ×2 (09:21→19:22)
[2022-08-27] MEDS ORDERED: LIDOCAINE HCL 1% 20 ML VIAL ONE (09:48)
[2022-08-27] MEDS ORDERED: BUPIVACAINE/PF 0.25% 10ML VIAL IJ ONE (09:49)
[2022-08-27] MEDS: ASPIRIN 81 MG EC TAB PO SCH (11:30)
[2022-08-27] MEDS ORDERED: PROPOFOL 10 MG/ML 20ML VIAL IV ONE (12:29)
[2022-08-27] MEDS ORDERED: MIDAZOLAM HCL 1 MG/ML 2ML VIAL ONE (12:29)
[2022-08-27] MEDS ORDERED: LIDOCAINE PF 100MG/5ML (2%) SYRINGE 5ML ONE (12:30)
[2022-08-27] MEDS ORDERED: FENTANYL CITRATE PF 50 MCG/1 ML 2ML VIAL ONE (12:41)
[2022-08-27] MEDS ORDERED: LIDOCAINE HCL 1% 20 ML VIAL MISC ONE (12:42)
[2022-08-27] MEDS ORDERED: BUPIVACAINE/PF 0.25% 30ML VIAL IJ ONE (12:43)
[2022-08-27 14:45] LABS: MEAN CORPUSCULAR HEMOGLOBIN 28.8 pg (27.0-33.0); MEAN CORPUSCULAR HGB CONC 31.5 g/dL (32.0-36.0); MEAN CORPUSCULAR VOLUME 91.3 fL (79-99); RED BLOOD CELL COUNT(AUTO) 2.19 MIL/uL (4.50-6.20); RED CELL DISTRIBUTION WIDTH 13.9 % (11.0-15.5); WHITE BLOOD COUNT (AUTO) 8.3 K/uL (4.8-10.8)
[2022-08-27 14:52] LABS: UREA NITROGEN, BLOOD 21 mg/dL (7-18)
[2022-08-27 15:01] LABS: CARBON DIOXIDE 18 mmol/L (21-32); CHLORIDE 112 mmol/L (101-111); GLOMERULAR FILTR. RATE CALC 13 mL/min (>60); GLUCOSE,RANDOM 85 mg/dL (70-105); SODIUM SERUM 140 mmol/L (136-145)
[2022-08-27 15:07] LABS: POTASSIUM 2.2 mmol/L (3.5-5.1)
[2022-08-27] MEDS ORDERED: KCL 20 MEQ ERTAB PO ONE (15:30)
[2022-08-27] MEDS: ATORVASTATIN 40 MG TABLET PO SCH (19:22)
[2022-08-28] VITALS (21 sets, daily range): BP systolic 97–150; BP diastolic 58–91
[2022-08-28] MEDS: INSULIN HUMULIN R 100 UNIT/ML 3ML SQ SCH ×4 (05:36→21:00)
[2022-08-28] MEDS: Vitamin B Complex/Vit C/Folic Acid PO SCH (08:11)
[2022-08-28] MEDS: MIDODRINE HCL 5 MG TABLET PO SCH ×3 (08:12→21:19)
[2022-08-28] MEDS: CLOPIDOGREL 75MG TAB PO SCH (08:12)
[2022-08-28] MEDS: ZOSYN 3.375GM +NS 50ML IV SCH ×2 (08:12→21:19)
[2022-08-28] MEDS: FAMOTIDINE 20MG TAB PO SCH ×2 (08:12→21:19)
[2022-08-28] MEDS: **HM** VIT D3 125MCG PO SCH (08:20)
[2022-08-28] MEDS: ASPIRIN 81 MG EC TAB PO SCH (11:49)
[2022-08-28 12:22] LABS: HEMATOCRIT 36.4 % (42-54); MEAN CORPUSCULAR HEMOGLOBIN 28.4 pg (27.0-33.0); MEAN CORPUSCULAR HGB CONC 32.4 g/dL (32.0-36.0); MEAN CORPUSCULAR VOLUME 87.5 fL (79-99); RED BLOOD CELL COUNT(AUTO) 4.16 MIL/uL (4.50-6.20); RED CELL DISTRIBUTION WIDTH 13.9 % (11.0-15.5); WHITE BLOOD COUNT (AUTO) 15.7 K/uL (4.8-10.8)
[2022-08-28 13:13] LABS: CREATININE 5.5 mg/dL (0.5-1.5); POTASSIUM 3.7 mmol/L (3.5-5.1)
[2022-08-28] MEDS ORDERED: EPOETIN ALFA-EPBX (NON-ESRD) 10,000 UNIT/ML VIAL SQ SCH (14:10)
[2022-08-28] MEDS: VANCOMYCIN 1G/250ML KIT 250 ML IV SCH (16:00)
[2022-08-28] MEDS: ATORVASTATIN 40 MG TABLET PO SCH (21:19)
[2022-08-29] VITALS: BP 134/78
[2022-08-29 04:00] VITALS: BP 135/77
[2022-08-29 05:17] LABS: EOSINOPHILS % (AUTO) 1.7 % (0.0-8.0); HEMATOCRIT 41.9 % (42-54); LYMPHOCYTES % (AUTO) 13.7 % (21.0-51.0); MEAN CORPUSCULAR HEMOGLOBIN 28.3 pg (27.0-33.0); MEAN CORPUSCULAR HGB CONC 31.5 g/dL (32.0-36.0); MEAN CORPUSCULAR VOLUME 89.9 fL (79-99); MONOCYTES % (AUTO) 8.9 % (3.0-13.0); NEUTROPHILS % (AUTO) 73.4 % (40.0-77.0); PLATELET COUNT (AUTO) 353 K/uL (130-400); RED BLOOD CELL COUNT(AUTO) 4.66 MIL/uL (4.50-6.20); RED CELL DISTRIBUTION WIDTH 14.3 % (11.0-15.5); WHITE BLOOD COUNT (AUTO) 14.3 K/uL (4.8-10.8)
[2022-08-29 05:41] LABS: MAGNESIUM 2.1 mg/dL (1.80-2.40); PHOSPHORUS 5.6 mg/dL (2.5-4.9); POTASSIUM 4.5 mmol/L (3.5-5.1)
[2022-08-29 05:51] LABS: CREATININE 8.2 mg/dL (0.5-1.5)
[2022-08-29] MEDS: INSULIN HUMULIN R 100 UNIT/ML 3ML SQ SCH ×2 (06:56→11:30)
[2022-08-29] MEDS: ZOSYN 3.375GM +NS 50ML IV SCH (08:38)
[2022-08-29] MEDS: FAMOTIDINE 20MG TAB PO SCH (08:38)
[2022-08-29] MEDS: Vitamin B Complex/Vit C/Folic Acid PO SCH (08:38)
[2022-08-29] MEDS: **HM** VIT D3 125MCG PO SCH (08:38)
[2022-08-29] MEDS: MIDODRINE HCL 5 MG TABLET PO SCH (08:38)
[2022-08-29] MEDS: CLOPIDOGREL 75MG TAB PO SCH (08:38)
[2022-08-29] MEDS ORDERED: Midodrine Hcl PO (11:13)
[2022-08-29] MEDS ORDERED: AEC81 PO (11:13)
[2022-08-29] MEDS ORDERED: CLOP-31 PO (11:13)
[2022-08-29] MEDS ORDERED: Loperamide PO (11:13)
[2022-08-29 11:54] VITALS: BP 121/80
[2022-08-29] MEDS: ASPIRIN 81 MG EC TAB PO SCH (12:09)
== END 2022-08-29 13:30 | disposition home or self-care (01) | DRG 270 ==
LOC: EDH 15:39 → EDHIP 08-19 02:51 → 2AH 08-19 04:17 → 4BH 08-22 02:37
PROVIDERS: ADMIT Internal Medicine; ATTEND Internal Medicine
PROC: 5A1D70Z Performance of Urinary Filtration, Intermittent, Less than 6 Hours Per Day (ICD-10-PCS; 2022-08-19)
PROC: 5A1D70Z Performance of Urinary Filtration, Intermittent, Less than 6 Hours Per Day (ICD-10-PCS; 2022-08-19)
PROC: 5A1D70Z Performance of Urinary Filtration, Intermittent, Less than 6 Hours Per Day (ICD-10-PCS; 2022-08-21)
PROC: 0Y6S0Z0 Detachment at Left 2nd Toe, Complete, Open Approach (ICD-10-PCS; 2022-08-22)
PROC: 0DJ08ZZ Inspection of Upper Intestinal Tract, Via Natural or Artificial Opening Endoscopic (ICD-10-PCS; 2022-08-23)
PROC: 0DBE8ZX Excision of Large Intestine, Via Natural or Artificial Opening Endoscopic, Diagnostic (ICD-10-PCS; 2022-08-24)
PROC: 5A1D70Z Performance of Urinary Filtration, Intermittent, Less than 6 Hours Per Day (ICD-10-PCS; 2022-08-24)
PROC: 04CN3ZZ Extirpation of Matter from Left Popliteal Artery, Percutaneous Approach (ICD-10-PCS; principal; 2022-08-26)
PROC: 047N3D1 Dilation of Left Popliteal Artery with Intraluminal Device, using Drug-Coated Balloon, Percutaneous Approach (ICD-10-PCS; 2022-08-26)
PROC: 047U3ZZ Dilation of Left Peroneal Artery, Percutaneous Approach (ICD-10-PCS; 2022-08-26)
PROC: 04FU3ZZ Fragmentation of Left Peroneal Artery, Percutaneous Approach (ICD-10-PCS; 2022-08-26)
PROC: B41D1ZZ Fluoroscopy of Aorta and Bilateral Lower Extremity Arteries using Low Osmolar Contrast (ICD-10-PCS; 2022-08-26)
PROC: 5A1D70Z Performance of Urinary Filtration, Intermittent, Less than 6 Hours Per Day (ICD-10-PCS; 2022-08-26)
PROC: 0Y6U0Z0 Detachment at Left 3rd Toe, Complete, Open Approach (ICD-10-PCS; 2022-08-27)
PROC: 5A1D70Z Performance of Urinary Filtration, Intermittent, Less than 6 Hours Per Day (ICD-10-PCS; 2022-08-28)
PROC: 30233N1 Transfusion of Nonautologous Red Blood Cells into Peripheral Vein, Percutaneous Approach (ICD-10-PCS; 2022-08-28)
DX: E11.52 Type 2 diabetes mellitus with diabetic peripheral angiopathy with gangrene (principal); N18.6 End stage renal disease; U07.1 COVID-19; L03.116 Cellulitis of left lower limb; E87.1 Hypo-osmolality and hyponatremia; I42.9 Cardiomyopathy, unspecified; I13.2 Hypertensive heart and chronic kidney disease with heart failure and with stage 5 chronic kidney disease, or end stage renal disease; M86.8X7 Other osteomyelitis, ankle and foot; I50.42 Chronic combined systolic (congestive) and diastolic (congestive) heart failure; L02.612 Cutaneous abscess of left foot; I95.9 Hypotension, unspecified; Z99.2 Dependence on renal dialysis; E11.22 Type 2 diabetes mellitus with diabetic chronic kidney disease; I35.0 Nonrheumatic aortic (valve) stenosis; D50.9 Iron deficiency anemia, unspecified; R53.81 Other malaise; K52.9 Noninfective gastroenteritis and colitis, unspecified; E11.43 Type 2 diabetes mellitus with diabetic autonomic (poly)neuropathy; E11.621 Type 2 diabetes mellitus with foot ulcer; E11.69 Type 2 diabetes mellitus with other specified complication; E66.9 Obesity, unspecified; E78.00 Pure hypercholesterolemia, unspecified; E86.0 Dehydration; E87.6 Hypokalemia; I25.10 Atherosclerotic heart disease of native coronary artery without angina pectoris; I25.5 Ischemic cardiomyopathy; K21.00 Gastro-esophageal reflux disease with esophagitis, without bleeding; K29.00 Acute gastritis without bleeding; K29.80 Duodenitis without bleeding; K64.9 Unspecified hemorrhoids; K31.84 Gastroparesis; K64.8 Other hemorrhoids; L97.509 Non-pressure chronic ulcer of other part of unspecified foot with unspecified severity; Z79.4 Long term (current) use of insulin; Z79.899 Other long term (current) drug therapy; Z82.49 Family history of ischemic heart disease and other diseases of the circulatory system; Z83.3 Family history of diabetes mellitus; Z89.511 Acquired absence of right leg below knee; Z91.199 Patient's noncompliance with other medical treatment and regimen due to unspecified reason
CPT/HCPCS: 36415; 36430; 37225; 43235; 45380; 71045; 73630; 73718; 74021; 75710; 75716; 76700; 78227; 80048; 80053; 80074; 80076; 80202; 82103; 82104; 82390; 82533; 82728; 82948; 83036; 83516; 83540; 83550; 83605; 83735; 83880; 83993; 84100; 84145; 84439; 84443; 85025; 85027; 85610; 85651; 85730; 86038; 86140; 86255; 86677; 86704; 86706; 86850; 86900; 86901; 86923; 87040; 87070; 87076; 87077; 87081; 87177; 87186; 87205; 87340; 87426; 87507; 87635; 90935; 93306; 93356; 93926; 99156; 99157; A4606; A9537; C1769; C1884; C1893; C1894; C9772; G0378; J0696; J1644; J1815; J2001; J2250; J2543; J2704; J3010; J3370; J3490; J7030; J7050; P9016; Q9967

== ENCOUNTER → 2022-09-15 | Outpatient (CLI) | payer OTHER, MEDICARE ==
[~2022-09-15] MED LIST changes: +AEC81 PO; +ATOR40TA71 PO; +CHOL500051 PO; +CLOP-31 PO; +FOLI0.8T22 PO; +GABA-529 PO; -INSU100C6 SQ; -INSU100I21 SQ; +Loperamide PO; +Midodrine Hcl PO; +SUCR500T PO; -TYL3B PO
== END | disposition home or self-care (01) ==
LOC: RAH 09:51
DX: E11.621 Type 2 diabetes mellitus with foot ulcer (principal); I96 Gangrene, not elsewhere classified; L97.509 Non-pressure chronic ulcer of other part of unspecified foot with unspecified severity
CPT/HCPCS: 73630